=== PATIENT | male | born 2000 | race Caucasian/White ===

== ENCOUNTER 2019-01-24 11:04 | Emergency (ER) | payer SELFPAY ==
[~2019-01-24] VITALS: Ht 177.8 cm; Wt 68.0 kg
[~2019-01-24 11:04] MED LIST: ALBU90I INH; ALBU90OI; Keflex500 MG PO
[2019-01-24] MEDS ORDERED: CEPH500 PO (11:20)
== END 2019-01-24 11:20 | disposition home or self-care (01) ==
LOC: ER 11:04
DX: S61.210A Laceration without foreign body of right index finger without damage to nail, initial encounter (principal); J45.909 Unspecified asthma, uncomplicated; W26.0XXA Contact with knife, initial encounter
CPT/HCPCS: 90471; 90714; 99282-25